=== PATIENT | female | born 1975 | race Caucasian/White ===

== ENCOUNTER 2017-07-16 20:38 | Emergency (ER) | payer MEDICAID ==
[~2017-07-16] VITALS: Ht 152.4 cm; Wt 53.5 kg
[2017-07-16 20:39] VITALS: BP_SYST 131
--- NOTE | 2017-07-16 22:30 | NUR ---
PT AMBULATORY TO [facility] FOR EVALUATION
--- NOTE | 2017-07-16 22:30 | NUR ---
PT AMBULATORY, A/O X 4, C/O COUGH AND FEVER X 1 DAY. PT REPORTED COLD SYMPTOMS X 1 WEEK. TOOK FEVER/PAIN MEDS AT 1600 HRS WITH SOME RELIEF OF SYMPTOMS. PT REPORTED MIGRAINE HEADACHE, BODY ACHES TODAY. PT WITH NORMAL RESP EFFORT, NO SOB, LUNGS CTA. PT WITH LOW GRADE FEVER, NO CP, NO N/V, NO ABDOMINAL PAIN.MADE COMFORTABLE IN BED, WAITING FOR ER MD TO [facility].
--- NOTE | 2017-07-16 22:39 | NUR ---
OBTAINED SPECIMEN FOR INFLUENZA
--- NOTE | 2017-07-16 22:39 | NUR ---
ER at bedside examining patient.
[2017-07-16] MEDS ORDERED: ACETAMINOPHEN 325 MG TABLET ONE (23:50)
[2017-07-16] MEDS: ACETAMINOPHEN 325 MG TABLET PO ONE (23:55)
[2017-07-17 01:18] VITALS: BP_SYST 128
--- NOTE | 2017-07-17 01:18 | NUR ---
Patient given written and verbal discharge instructions and verbalizes understanding. ER MD discussed with patient the results and treatment provided. Patient in stable condition. ID arm band removed. Rx of Ibuprofen 800 mg and promethazine hcl with codeine phosphate syrup given. Patient educated on pain management and to follow up with PMD. Pain Scale 0/10. Opportunity for questions provided and answered.
== END 2017-07-17 01:18 | disposition home or self-care (01) ==
LOC: SED 20:38
DX: J06.9 Acute upper respiratory infection, unspecified (principal)
CPT/HCPCS: 36415; 86710; 99284

== ENCOUNTER 2020-09-05 10:13 | Emergency (ER) | payer SELFPAY ==
[~2020-09-05] VITALS: Ht 152.4 cm; Wt 44.5 kg
[2020-09-05 10:25] VITALS: BP_SYST 126
[2020-09-05 11:22] LABS: BASOPHILS # (AUTO) 0.1 K/uL (0.0-0.2); EOSINOPHILS # (AUTO) 0.1 K/uL (0.0-0.4); EOSINOPHILS % (AUTO) 1.6 % (0.0-4.0); HEMATOCRIT 44.1 % (36-48); HEMOGLOBIN 15.4 g/dL (12.0-16.0); LYMPHOCYTES # (AUTO) 1.4 K/uL (1.0-5.5); LYMPHOCYTES % (AUTO) 22.2 % (20.5-51.5); MEAN CORPUSCULAR HEMOGLOBIN 32 pg (27-31); MEAN CORPUSCULAR HGB CONC 35 % (32-36); MEAN CORPUSCULAR VOLUME 91 fL (79.0-98.0); MONOCYTES # (AUTO) 0.4 K/uL (0.0-1.0); MONOCYTES % (AUTO) 6.9 % (1.7-9.3); NEUTROPHILS # (AUTO) 4.2 K/uL (1.8-7.7); NEUTROPHILS % (AUTO) 68.3 % (40.0-70.0); PLATELET COUNT (AUTO) 218 K/uL (130-430); RED BLOOD CELL COUNT(AUTO) 4.84 MIL/uL (4.2-6.2); RED CELL DISTRIBUTION WIDTH 12.2 % (9.0-15.0); WHITE BLOOD COUNT (AUTO) 6.2 K/uL (4.8-10.8)
[2020-09-05 11:23] LABS: BILIRUBIN,URINE NEGATIVE (NEGATIVE); BLOOD, URINE NEGATIVE (NEGATIVE); CLARITY/URINE CLEAR (CLEAR); COLOR,URINE YELLOW (YELLOW); GLUCOSE,URINE NEGATIVE (NEGATIVE); KETONES,URINE NEGATIVE (NEGATIVE); LEUKOCYTE ESTERASE ,URINE NEGATIVE (NEGATIVE); NITRITE, URINE NEGATIVE (NEGATIVE); PH,URINE 5.5 (5.0-8.0); PROTEIN URINE NEGATIVE (NEGATIVE); UROBILINOGEN,URINE 0.2 (0.2-1.0)
[2020-09-05 11:35] LABS: CALCIUM 8.9 mg/dL (8.4-11.0); CREATININE 0.94 mg/dL (0.55-1.30); POTASSIUM 4.3 mmol/L (3.5-5.1)
[2020-09-05 11:41] LABS: ALBUMIN 4.1 g/dL (3.4-4.8); TOTAL BILIRUBIN 1.4 mg/dL (0.0-1.0)
[2020-09-05 12:15] VITALS: BP_SYST 126
== END 2020-09-05 12:04 | disposition home or self-care (01) ==
LOC: SED 10:13
DX: R07.89 Other chest pain (principal)
CPT/HCPCS: 36415; 80053; 81003; 85025; 99283